=== PATIENT | male | born 1995 | race Caucasian/White ===

== ENCOUNTER 2016-09-27 08:09 | Emergency (ER) | payer OTHER ==
[2016-09-27 08:58] LABS: HEMOGLOBIN 14.1 gm/dl (14.0-17.5); RED BLOOD COUNT 5.01 M/UL (4.20-5.50); WHITE BLOOD COUNT 14.4 K/UL (4.5-11.0)
[2016-09-27 09:20] LABS: BUN/CREATININE RATIO 11 (0-10)
== END 2016-09-27 11:06 | disposition home or self-care (01) ==
LOC: ER1 08:09
PROVIDERS: Physician Assistant Medical
DX: N13.2 Hydronephrosis with renal and ureteral calculous obstruction (principal); R80.9 Proteinuria, unspecified
CPT/HCPCS: 36415; 80053; 81001; 82150; 83690; 85025; 96374; 96375; 99284; J1885; J2270; J2405

== ENCOUNTER 2017-02-15 21:12 | Emergency (ER) | payer OTHER | END 2017-02-16 | disposition home or self-care (01) | LOC: ER1 21:12 | DX: H60.92 Unspecified otitis externa, left ear (principal); J02.9 Acute pharyngitis, unspecified | CPT/HCPCS: 99282 ==

== ENCOUNTER 2021-12-09 17:40 | Emergency (ER) | payer OTHER ==
[2021-12-09 19:44] LABS: HEMOGLOBIN 15.1 gm/dl (14.0-17.5); RED BLOOD COUNT 5.43 M/UL (4.20-5.50); WHITE BLOOD COUNT 7.4 K/UL (4.5-11.0)
[2021-12-09 20:06] LABS: BUN/CREATININE RATIO 13 (0-10)
[2021-12-09] MEDS ORDERED: ENDOCET 5-3251 EACH PO ×2 (22:50)
[2021-12-09] MEDS ORDERED: FLOMAX 0.4 MG0.4 MG PO (23:04)
[2021-12-09] MEDS ORDERED: TORADOL 10 MG T10 MG PO (23:04)
[2021-12-09] MEDS ORDERED: ONDANSETRON ODT4 MG SL (23:04)
== END 2021-12-09 23:50 | disposition home or self-care (01) ==
LOC: ER1 17:40
PROVIDERS: Emergency Medicine
DX: N20.1 Calculus of ureter (principal); Z87.442 Personal history of urinary calculi; F17.290 Nicotine dependence, other tobacco product, uncomplicated
CPT/HCPCS: 80053; 81001; 83690; 85025; 96374; 96375; 99284; J1885; J2270; J2405